=== PATIENT | male | born 1950 | race Caucasian/White ===

== ENCOUNTER 2025-02-05 06:28 | Day surgery (SDC) | payer OTHER, SELFPAY ==
[2025-02-05] VITALS (15 sets, daily range): BP systolic 99–142; BP diastolic 63–92; BMI 26.2
[2025-02-05] MEDS: NSS 241 ML IV (07:14)
[2025-02-05] MEDS: LOW STRENGTH ASPIRIN 324 MG PO (07:45)
[2025-02-05] MEDS: NSS 1000 IV (10:18)
--- NOTE | 2025-02-05 10:31 | ITS.CL.CATH ---
Angle Shear Operator - Catheterization
Cardiac Catheterization
Procedure Report:
RIGHT AND LEFT HEART STUDY
Date of Procedure: February 05, 2025
Referring: Dr. Basim Sanchez
PROCEDURES:
1. Right heart catheterization
2. Left heart catheterization with coronary and single-plane left ventriculography
INDICATION: This is a 75-year-old gentleman who was found to have a murmur of aortic stenosis and was referred for an echocardiogram and [facility]. The echocardiogram was notable for a heavily calcified aortic valve with a mean gradient of
21-25 mmHg and a dimensionless index of 0.21 with reduced stroke-volume estimate and reduced aortic valve area at 0.75 cm�. He has active lifting weights for almost 2 hours most days and notices heart palpitations while in atrial fibrillation. A
subsequent CT scan of the coronary vessels was notable for a Miley type I morphologic bicuspid aortic valve with partial fusion of the left and right coronary cusps. There was heavy calcification of the aortic leaflets. The CT angiogram was also
suggestive of a 50% left main stenosis, mild stenosis in the LAD, circumflex, and RCA. The aortic root was mildly dilated measuring 37 mm. Given these findings he is now referred for coronary angiography with complaints of vague exertional dyspnea.
ACCESS: Right radial artery, 6 Azeri sheath and right brachial vein, 5 Azeri sheath. Both arterial and venous access were obtained with ultrasound guidance.
HEMODYNAMICS : mmHg
RA (m) : 12
RV (s/d) : 35/3
PA (s/d, m) : 31/19, 24
PCWP (m) : 18
AO (s/d, m) : 120/71, 95
LV (s/d) : 137/12
LVEDP : 18
Estimated Judy Cardiac Output: 4.5 L / min and Cardiac Index: 2.3 L/ min / m-2
Systemic vascular resistance: 18.4 Wood units or 1476 [id number](-5)
Pulmonary vascular resistance: 1.3 Wood units or 107 [id number](-5)
AORTIC VALVE:
Mean gradient: 19 mmHg
Aortic valve area: 1.1 cm�
CORONARY FINDINGS :
Dominance: Right /Codominant
LEFT MAIN: 30% distal tapering
LEFT ANTERIOR DESCENDING: The LAD arises normally from the left main and runs in the anterior interventricular groove. The LAD has only minor irregularities over its course with no focal obstructive stenosis. The distal LAD wraps completely around
the apex supplying a portion of the inferior wall.
CIRCUMFLEX: The circumflex is a medium to large caliber nondominant vessel with minor ostial narrowing. OM1 arises from the mid circumflex and bifurcates just beyond its origin into 2 moderate caliber daughter branches. The circumflex continues in
the AV groove supplying a sizable posterolateral branch and small PDA
RIGHT CORONARY ARTERY: The right coronary artery is a medium caliber codominant vessel with minor irregularities over its course but no focal obstructive stenosis. A codominant PDA is noted distally.
VENTRICULOGRAPHY: Left ventriculography is performed in an ZAVALA projection. The digital single-plane left ventricular ejection fraction is estimated at 50-55% with 1-2+ mitral regurgitation noted
SEDATION: 53 minutes of procedural sedation was utilized. An independent emergency medical service coordinator was present to assist with and help manage the patient's level of consciousness and physiologic status
RADIATION SUMMARY: Fluoro Time (min): 6.6, Dose (mGy): 387, DAP (Gy.cm2) : 30.6
CONCLUSIONS
1. Aortic stenosis with a mean gradient of 19 mmHg estimated aortic valve area of 1.1 cm�
2. Noncritical coronary artery disease
RECOMMENDATIONS
1. Would repeat echocardiogram prior to office visit with Dr. Sanchez
2. Medical therapy and risk modification
3. I have called [facility] and requested echocardiogram images from 10/2024
Copy to: Dr. Basim Sanchez
== END 2025-02-05 13:15 | disposition home or self-care (01) ==
LOC: CATH 06:28
PROVIDERS: ATTENDING PHYSICIAN Internal Medicine Interventional Cardiology; OTHER PHYSICIAN Internal Medicine Cardiovascular Disease
DX: I35.0 Nonrheumatic aortic (valve) stenosis (principal); I35.8 Other nonrheumatic aortic valve disorders; Q23.81 Bicuspid aortic valve; I25.10 Atherosclerotic heart disease of native coronary artery without angina pectoris
CPT/HCPCS: 99152; 99153; 93460; C1769; C1894; Q9967

== ENCOUNTER → 2025-04-03 11:35 | Outpatient (REF) | payer OTHER, SELFPAY | LOC: DHSLP 11:35 | PROVIDERS: ATTENDING PHYSICIAN Internal Medicine Cardiovascular Disease; FAMILY PHYSICIAN Internal Medicine | DX: G47.30 Sleep apnea, unspecified (principal); R06.83 Snoring | CPT/HCPCS: 95800 ==

== ENCOUNTER 2025-05-08 06:58 | Day surgery (SDC) | payer OTHER, SELFPAY | END 2025-05-08 10:24 | disposition home or self-care (01) | LOC: CATH 06:58 | PROVIDERS: ATTENDING PHYSICIAN Internal Medicine Cardiovascular Disease; FAMILY PHYSICIAN Internal Medicine | DX: I48.0 Paroxysmal atrial fibrillation (principal); I08.0 Rheumatic disorders of both mitral and aortic valves; Z79.01 Long term (current) use of anticoagulants; I25.10 Atherosclerotic heart disease of native coronary artery without angina pectoris; E78.5 Hyperlipidemia, unspecified; Z79.899 Other long term (current) drug therapy; Z88.2 Allergy status to sulfonamides | CPT/HCPCS: 93312; 93320; 93325 ==

== ENCOUNTER 2025-05-09 06:01 | Day surgery (SDC) | payer OTHER, SELFPAY ==
[2025-05-01 12:57] VITALS: BMI 26.1
[2025-05-01 13:36] LABS: Hematocrit 44.2 % (39.0-52.0); Hemoglobin 15.1 g/dL (13.0-18.0); Mean Corp Hgb Conc. 34.2 g/dL (33.0-37.0); Mean Corpuscular Volume 90.4 fL (80.0-94.0); Nucleated Red Blood Cells % 0 % (-); Platelet Count 189 10^3/uL (130-400); Red Cell Dist. Width 13.0 % (11.5-14.5)
[2025-05-01 13:46] LABS: INR 1.21; PT 15.6 Sec (11.4-14.6)
[2025-05-01 14:15] LABS: ALT (SGPT) 23 U/L (0-50); AST (SGOT) 27 U/L (17-59); Albumin 4.8 g/dl (3.5-5.0); Alkaline Phosphatase 53 U/L (38-126); Blood Urea Nitrogen 22 mg/dl (9-20); Calcium 9.9 mg/dl (8.4-10.2); Carbon Dioxide 29 mmol/L (22-30); Chloride 106 mmol/L (98-107); Estimated Creatinine Clearance 58 ml/min; Glucose 99 mg/dl (70-99); Magnesium 2.4 mg/dl (1.6-2.3); Potassium 5.0 mmol/L (3.5-5.1); Sodium 138 mmol/L (135-145); Total Protein 7.4 g/dl (6.3-8.2); eGFR > 60.00
[2025-05-09] VITALS (12 sets, daily range): BP systolic 89–132; BP diastolic 53–86; BMI 26.2
[2025-05-09] MEDS: TYLENOL 1000 MG PO (07:01)
--- NOTE | 2025-05-09 07:55 | ITS.CL.ABL ---
Salvage Engineering Technician - Ablation
Ablation
Procedure Report:
Primary Finishing Inspector: Dr Basim Sanchez
Procedure Date: 05/09/2025
Patient History:
Patient is a pleasant 75-year-old male with a past medical history significant for functional bicuspid aortic valve with mild aortic stenosis, medically managed CAD, mixed hyperlipidemia, persistent symptomatic atrial fibrillation.
See H&P for complete details.
Indication:
Symptomatic persistent atrial fibrillation
Arrhythmia Specific History:
Prior Medical Therapies for Rate and Rhythm Control:
[ ] Beta-lynda
[ ] Calcium channel-lynda
[ ] Amiodarone
[ ] Dronederone
[ ] Sotalol
[ ] Flecainide
[ ] Dofetilide
X Options limited by bradycardia
[ ] Options limited by comorbid renal disease
Prior Procedural Therapies for AF/AFL:
[ ] Cardioversion
[ ] Pulmonary Vein Isolation
[ ] Posterior Wall Isolation
[ ] Additional lines (Specify)
[ ] Surgical Hernandez-MAZE or PVI (Specify)
Procedure Performed:
X AF ablation procedure (79751) -- includes LA/CS pacing, trans-septal, 3D mapping, + ICE
[ ] +IV drug (30475)
[ ] +Other Arrhythmia (90803)
X +Other AF Line/ablation (90274 x2) - floor line, roof line, posterior wall isolation
Risks and expected recovery has been explained in detail. Alternative options have been explored, and in a shared-decision making fashion we have decided that this was the most appropriate procedure.
Method
NPO status confirmed. Grounding pad applied. Defibrillator pads applied. Continuous surface ECG, pulse oximetry, and blood pressure were monitored. Procedure was performed under general anesthesia, with anesthesia services.
Both groins were clipped, prepped with Chloraprep, and draped in sterile fashion. Time out was called. Local anesthesia administered with bupivacaine. The right femoral vein was accessed for catheter placement, using ultrasound guidance (images
saved to record), micro-puncture needle/wire, and modified seldinger technique. 3 sheaths were placed. The following catheters were used:
[ ] Tacticath SE (D/F Curve) ablation catheter
X Viewflex 9Fr ICE catheter
X Inquiry decapolar 6Fr diagnostic catheter
[ ] CRD Hex 6Fr
X FlexCath Contour 10 Fr with PulseSelect PFA Catheter
X Advisor HD Grid Mapping Catheter, SE
[ ] Acuson AcuNav 8 Fr ICE catheter
[ ]Other: [ ]
Intracardiac ultrasound (ICE) was carefully advanced into the right atrium to guide sheath placement over a J-wire, catheter placement, guide trans-septal puncture, identify potential complications, identify anatomic structures and ensure proper
contact between ablation catheter and tissue. A trace pericardial effusion was noted basal LV at the initiation of the case and which remained unchanged throughout the case in a case completion. Patient was noted to have common left sided
pulmonary veins with a separate right sided pulmonary veins visualized by intracardiac ultrasound and electroanatomic mapping.
Heparin was given prior to trans-septal puncture. Heparin was given to achieve and maintain a target ACT of 300-400 seconds throughout the procedure.
Trans-septal access was performed under ICE guidance. The trans-septal puncture was performed with a SafeSept wire through a Brockenbrough needle assembly through the steerable sheath. The wire was visualized as it entered the LSPV and system
advanced under ICE guidance and fluoroscopy into the LA. The Brockenbrough needle assembly, SafeSept wire and sheath dilator were removed under negative pressure. LA pressure was measured and recorded.
ICE and 3D mapping was performed to identify relevant cardiac structures. A careful 3D map was created to assess for regions of low-voltage and abnormal electrogram signals using HD grid mapping catheter and PulseSelect catheter. Additional mapping
was performed as outlined below.
Prior to ablation, glycopyrrolate was provided. PulseSelect catheter was advanced over J-wire to the ostium of each vein. Pulmonary vein isolation was performed with ostial and antral lesions in a circumferential manner. Contact was visualized via
EAM, ICE, fluoroscopy, and EGM signals.
After accomplishing pulmonary venous isolation, mapping identified additional areas likely to be extra PV contributors to atrial fibrillation. These areas demonstrated patchy low voltage as well as complex fractionated electrograms. These areas can
be sites for the formation of rotors which can drive and maintain atrial fibrillation. These areas are known to be significant contributors to initiation and perpetuation of atrial fibrillation.
Additional energy applications/additional ablation sets targeted extra PV contributors to atrial fibrillation.
Targets for additional PFA ablation included: LA posterior wall targeted with pulsed electric field energy isolating the posterior wall of the left atrium. Posterior wall isolation was performed by anchoring the J-wire within the pulmonary vein and
placing the PulseSelect catheter in contact posterior wall as visualized by aforementioned methods.
After ablation of the posterior wall, targets remained including:
- Inferior LA floor
- Anterior LA roof
These areas were ablated using pulsed electric field energy eliminating the extra PV contributors to atrial fibrillation.
Following completion of ablation lesions, sinus rhythm was restored with a 200J synchronized DCCV and a post-ablation voltage/activation map was performed in sinus rhythm. Entrance and exit block were confirmed for each vein and the posterior wall.
Catheter and sheath were removed from the left atrium and post-ablation intracardiac echo evaluation was consistent with pre-ablation with no changes and no pericardial effusion and there is no left atrial thrombus or left ventricle thrombus seen.
Electrophysiology study was performed. Hemostasis was obtained with figure of 8 stitch for each groin and with manual pressure. Protamine was used for reversal.
Estimated Blood Loss
5 mL
Complications
None
Fluoroscopy: 2.4 minutes; 5.8 mGy; DAP 0.839
LA Pressure: Pre 10 mmHg, post 11 mmHg
Baseline Intervals:
Rhythm: AF
QRS: 90 ms
QT: 367 ms
Post-Procedure Intervals:
MD: 186 ms
QRS: 90 ms
QT: 384 ms
AVWB: 460 ms
AVERP: 600/370 ms
AERP: 600/250 ms
Recommendations
- Bedrest with straight-leg precautions as ordered
- Anticipate same day discharge if patient meeting clinical metrics
- Resume home medications as indicated
- Ok to resume anticoagulation tonight if patient and groin sites stable
- PPI daily for 30 days
- Plan for follow-up in office as scheduled
Stefano Sarabia DO, FACC, RS
Clinical Cardiac Consulting Sales Manager
cc: Dr Basim Sanchez; Dr Philippe Mahan
[2025-05-09 08:49] LABS: ACT-LR - POC 297 Seconds (116-155)
[2025-05-09 09:22] LABS: ACT-LR - POC 351 Seconds (116-155)
[2025-05-09 09:49] LABS: ACT-LR - POC 350 Seconds (116-155)
[2025-05-09 10:02] LABS: ACT-LR - POC 163 Seconds (116-155)
[2025-05-09 13:15] LABS: ACT-LR - POC > 397 Seconds (116-155)
--- NOTE | 2025-05-09 14:45 | W.PN.UPDATE ---
Update Note
Progress Note Update
Pt seen post PFA. Right groin without ht/bleeding, oob ambulating, urinating without difficulty. Post EKG NSR 70s w/1st deg AVB, no acute changes. Resume eliquis tonight at usual time. Followup with Dr. Gonzalez as scheduled. Home today if groin
site/tele remain stable.
== END 2025-05-09 15:00 | disposition home or self-care (01) ==
LOC: CATH 06:01
PROVIDERS: ATTENDING PHYSICIAN Internal Medicine Cardiovascular Disease; FAMILY PHYSICIAN Internal Medicine; REFERRING PHYSICIAN Internal Medicine Cardiovascular Disease
DX: I48.19 Other persistent atrial fibrillation (principal); I35.0 Nonrheumatic aortic (valve) stenosis; I25.10 Atherosclerotic heart disease of native coronary artery without angina pectoris; E78.2 Mixed hyperlipidemia; Z79.01 Long term (current) use of anticoagulants; Z79.899 Other long term (current) drug therapy; Z98.890 Other specified postprocedural states; Z88.2 Allergy status to sulfonamides; I49.8 Other specified cardiac arrhythmias
CPT/HCPCS: C1733; C1766; C1732; C1894; C1730; C1769; 36415; 80053; 83735; 85025; 85347; 85610; 86850; 86900; 86901; 93005; 93656; 93657

== ENCOUNTER 2025-05-14 15:17 | Day surgery (SDC) | payer OTHER, SELFPAY ==
--- NOTE | 2025-05-11 13:43 | W.PN.UPDATE ---
Update Note
Progress Note Update
Patient reported clear drainage from venotomy site. Patient reported right groin site soft, nontender, no swelling, mild bruising areas where tape been placed away from the venotomy site. Despite manual pressure and bandage changes, patient still
experiencing clear drainage from the site. Patient presented today. Right groin site shows clear serous drainage from the venotomy puncture site. Groin site soft, nontender, no swelling or induration. Mild healing ecchymosis medial and lateral
thigh where bandages had been placed. I discussed with patient regarding the possibility of continued manual observation and conservative measures or applying a [id number]-br-zhljq stitch at the groin site which would allow for improved stasis of the
serous drainage. Risks and benefits discussed with patient. Patient verbalized understanding and agreed with this plan. Right groin site was cleaned with ChloraPrep and dressed in standard fashion. 5 cc 1% lidocaine with 1: 100,000 epinephrine
was injected to venotomy site. [address] needle was used for fmblui-ca-fflrc stitch at the venotomy site. Gentle pressure was applied. No oozing was noted following placement of stitch and manual pressure. Site was dressed in standard
fashion. Discussed with patient regarding importance of monitoring the site. If new or worsening symptoms including but not limited to redness, warmth, drainage, swelling, or pain, patient to proceed to the hospital for evaluation. Patient to
schedule follow-up with me in the office on 05/14/2025 for removal of stitch. Patient verbalized understanding and agreed with this plan.
--- NOTE | 2025-05-11 14:20 | PTCARENOTE ---
patient arrived to seed analysis laboratory assistant recovery area. Site soft, no evidence of bleeding or hematoma. Clear fluid noted at site. Dr Matias at bedside, figure of eight to right groin. 2x2 & paper tape applied to site. pt discharged to home
--- NOTE | 2025-05-14 16:04 | PTCARENOTE ---
Patient arrived to greenskeeper laborer recovery area. Name and verified. Dr. Martell at bedside. Site soft, no evidence of bleeding or hematoma. Clear fluid noted at site, Innoseal and pressure applied to site per MD. Lidocaine 1% with epi
administered to R groin. Figure of eight to right groin by MD. Patient educated by MD regarding activity limitations and site care until stitch removed in 1 week. Innoseal, 2x2 & small tegaderm applied to site. Patient discharged to home.
--- NOTE | 2025-05-14 16:27 | W.PN.UPDATE ---
Update Note
Progress Note Update
Patient has continued to report clear drainage from venotomy site.
He underwent placement of a figure of 8 stitch on Wednesday, May 11, 2025. He presented to the office today May 14, 2025 and the stitch was removed. Within several hours he once again started experiencing clear yellowish drainage.
He presents today for another attempt at hemostasis.
The area at the right groin is soft, nontender, no swelling, mild bruising areas where tape been placed away from the venotomy site.
Initially an Innoseal hemostatic pad was applied.
Then the area was prepped and draped in a sterile fashion.
5 cc 1% lidocaine with 1: 100,000 epinephrine was injected to venotomy site.
Using [address] needle, a mattress stitch was applied at the venotomy site.
Next another InnoSeal hemostatic pad was applied with manual pressure for 10 minutes.
The site was dressed in the typical fashion and patient was discharged to home.
Patient was given instructions regarding activity restrictions.
Will plan to leave the stitch in place for approximately 7 days.
Will arrange for the office to bring him back on May 21 for stitch removal in the office.
== END 2025-05-14 16:40 | disposition home or self-care (01) ==
LOC: CATH 15:17
PROVIDERS: ATTENDING PHYSICIAN Internal Medicine Cardiovascular Disease
DX: T88.8XXD Other specified complications of surgical and medical care, not elsewhere classified, subsequent encounter (principal); Z98.890 Other specified postprocedural states; I48.91 Unspecified atrial fibrillation; I25.10 Atherosclerotic heart disease of native coronary artery without angina pectoris; Z79.01 Long term (current) use of anticoagulants
CPT/HCPCS: 12001